=== PATIENT | female | born 2000 | race American Indian/Alaskan Native ===

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

== ENCOUNTER 2019-05-15 19:16 | Emergency (ER) | payer SELFPAY ==
--- NOTE | 2019-05-15 19:28 | Event Note ---
ED Screening Note ED Screening Note: foreign body sensation in the right eye no contact lens use c/o blurred vision in the right eye was having watery drainage which has stopped This initial assessment/diagnostic orders/clinical plan/treatment(s) is/are subject to change based on patients health status, clinical progression and re-assessment by fellow clinical providers in the ED. Further treatment and workup at subsequent clinical providers discretion. Patient/guardian urged not to elope from the ED as their condition may be serious if not clinically assessed and managed. Initial orders include: visual acuity, chance lamp
--- NOTE | 2019-05-15 22:19 | Emergency Department Report ---
ED General Adult HPI - General Chief complaint: Eye Problems Stated complaint: JAW PAIN Time Seen by Provider: 05/15/19 19:26 Source: patient Mode of arrival: Ambulatory Limitations: No Limitations - History of Present Illness Initial comments: 18-year-old female presents to ED with report of right facial weakness and numbness 2 days. Patient states she was taking a selfie picture and noticed that she had a facial droop, and that her right eye looked funny. Patient is reporting right facial numbness, right side of the tongue is numb, and states s he is unable to completely close her right eye. Patient reports altered taste, ringing in the right ear, and hyperacusis in right ear. Patient denies any slurred speech, headache, extremity numbness or weakness. -: days(s) (2) Location: face Consistency: constant Improves with: none Worsens with: none Associated Symptoms: denies: fever/chills, headaches Treatments Prior to Arrival: none - Related Data Previous Rx's Medication Instructions Recorded Last Taken Type Dicyclomine [Bentyl] 10 mg PO BID #30 capsule 12/03/18 Unknown Rx Famotidine [Pepcid] 20 mg PO BID #30 tablet 12/03/18 Unknown Rx Ondansetron [Zofran ODT TAB] 8 mg PO Q12HR #20 tab.rapdis 12/03/18 Unknown Rx predniSONE [Deltasone] 50 mg PO QDAY #5 tab 05/15/19 Unknown Rx valACYclovir [Valtrex] 500 mg PO BID 5 Days #10 tab 05/15/19 Unknown Rx Allergies Allergy/AdvReac Type Severity Reaction Status Date / Time No Known Allergies Allergy Unverified 12/03/18 12:33 ED Review of Systems ROS: Stated complaint: JAW PAIN Other details as noted in HPI Comment: All other systems reviewed and negative Constitutional: denies: chills, fever Eyes: other (reports foreign body sensation in right eye) ENT: other (reports hyperacusis and alteration in taste) Neurological: numbness, paresthesias. denies: headache, vertigo ED Past Medical Hx - Past Medical History Previous Medical History?: No - Surgical History Past Surgical History?: No - Social History Smoking Status: Never Smoker Substance Use Type: None - Medications Home Medications: Home Medications Medication Instructions Recorded Confirmed Last Taken Type Dicyclomine [Bentyl] 10 mg PO BID #30 capsule 12/03/18 Unknown Rx Famotidine [Pepcid] 20 mg PO BID #30 tablet 12/03/18 Unknown Rx Ondansetron [Zofran ODT TAB] 8 mg PO Q12HR #20 tab.rapdis 12/03/18 Unknown Rx predniSONE [Deltasone] 50 mg PO QDAY #5 tab 05/15/19 Unknown Rx valACYclovir [Valtrex] 500 mg PO BID 5 Days #10 tab 05/15/19 Unknown Rx ED Physical Exam - General Limitations: No Limitations General appearance: alert, in no apparent distress - Head Head exam: Present: atraumatic, normocephalic - Eye Eye exam: Present: normal appearance, PERRL, EOMI. Absent: conjunctival injection - ENT ENT exam: Present: mucous membranes moist - Neck Neck exam: Present: normal inspection - Respiratory Respiratory exam: Present: normal lung sounds bilaterally. Absent: respiratory distress - Cardiovascular Cardiovascular Exam: Present: regular rate, normal rhythm - GI/Abdominal GI/Abdominal exam: Present: soft. Absent: distended, tenderness - Extremities Exam Extremities exam: Present: normal inspection - Neurological Exam Neurological exam: Present: alert, oriented X3. Absent: CN II-XII intact (slight right facial droop; unable to completely close left eye; weakness of right side of forehead with eyebrow lifting; speech is clear; strength 5/5 and sensation intact in all 4 extremities) - Psychiatric Psychiatric exam: Present: normal affect, normal mood - Skin Skin exam: Present: warm, dry, intact, normal color ED Course Vital Signs 05/15/19 05/15/19 19:26 22:30 Temperature 98.4 F Pulse Rate 73 71 Respiratory 18 18 Rate Blood Pressure 150/85 Blood Pressure 140/80 [Right] O2 Sat by Pulse 100 97 Oximetry ED Medical Decision Making - Differential Diagnosis Zhu's Palsy Critical care attestation.: If time is entered above; I have spent that time in minutes in the direct care of this critically ill patient, excluding procedure time. ED Disposition Clinical Impression: Zhu's palsy Disposition: DC-01 TO HOME OR SELFCARE Is pt being admited?: No Condition: Stable Instructions: Zhu Palsy (ED) Prescriptions: predniSONE [Deltasone] 50 mg PO QDAY #5 tab valACYclovir [Valtrex] 500 mg PO BID 5 Days #10 tab Referrals: PRIMARY CARE,MD [Primary Care Provider] - 3-5 Days SIA VALDIVIA MD [Referring] - 3-5 Days [facility] [Provider Group] - 3-5 Days Time of Disposition: 22:27
[2019-05-15 23:10] VITALS: BP 140/80
== END 2019-05-15 22:45 | disposition home or self-care (01) ==
LOC: ED 19:16
DX: G51.0 Bell's palsy (principal)
CPT/HCPCS: 99282

== ENCOUNTER 2019-07-13 17:16 | Emergency (ER) | payer SELFPAY ==
--- NOTE | 2019-07-13 18:26 | Emergency Department Report ---
Blank Doc - Documentation Documentation: 18-year-old female that presents with URI symptoms and left sided breast lump. This initial assessment/diagnostic orders/clinical plan/treatment(s) is/are subject to change based on patient's health status, clinical progression and re- assessment by fellow clinical providers in the ED. Further treatment and workup at subsequent clinical providers discretion. Patient/guardians urged not to elope from the ED as their condition may be serious if not clinically assessed and managed. Initial orders include: 1- Patient sent to [facility] for further evaluation and treatment 2- CXR
[2019-07-13 19:26] LABS: HCG Qualitative,Urine Negative (Negative)
[2019-07-13 19:39] LABS: Bacteria,Urine 1+ /HPF (Negative); Bilirubin,Urine NEG (Negative); Blood,Urine NEG (Negative); Color,Urine Yellow (Yellow); Mucus,Urine 2+ /HPF; Urobilinogen,Urine < 2.0 mg/dL (<2.0)
--- NOTE | 2019-07-13 20:46 | XRay Report ---
CHEST 2 VIEWS INDICATION / CLINICAL INFORMATION: cough. COMPARISON: None available. FINDINGS: SUPPORT DEVICES: None. HEART / MEDIASTINUM: No significant abnormality. LUNGS / PLEURA: No significant pulmonary or pleural abnormality. No pneumothorax. ADDITIONAL FINDINGS: No significant additional findings. IMPRESSION: 1. No acute findings. Signer Name: Bridger Sotelo MD Signed: 07/13/2019 8:41 PM Workstation Name: [id number]
--- NOTE | 2019-07-13 23:24 | Emergency Department Report ---
- General Chief Complaint: Upper Respiratory Infection Stated Complaint: BODY PAIN/RT BREAST PAIN Time Seen by Provider: 07/13/19 18:25 Source: patient Mode of arrival: Ambulatory Limitations: No Limitations - History of Present Illness Initial Comments: Patient is 18 years old female with no significant past medical history. Patient presented to the ER complaining of cough, productive with greenish sputum for the last 5 days. Patient denied any chest pain or shortness of breath nor no fever or chills. Patient is also complaining of right breast lump on and off for the last few weeks. Patient denies any recent weight loss or anoxia. No family history of breast cancer. MD Complaint: cough - Related Data Previous Rx's Medication Instructions Recorded Last Taken Type Dicyclomine [Bentyl] 10 mg PO BID #30 capsule 12/03/18 Unknown Rx Famotidine [Pepcid] 20 mg PO BID #30 tablet 12/03/18 Unknown Rx Ondansetron [Zofran ODT TAB] 8 mg PO Q12HR #20 tab.rapdis 12/03/18 Unknown Rx predniSONE [Deltasone] 50 mg PO QDAY #5 tab 05/15/19 Unknown Rx valACYclovir [Valtrex] 500 mg PO BID 5 Days #10 tab 05/15/19 Unknown Rx Allergies Allergy/AdvReac Type Severity Reaction Status Date / Time No Known Allergies Allergy Unverified 12/03/18 12:33 ED Review of Systems ROS: Stated complaint: BODY PAIN/RT BREAST PAIN Other details as noted in HPI Comment: All other systems reviewed and negative Constitutional: denies: chills, fever Respiratory: cough. denies: shortness of breath, SOB with exertion, SOB at rest, wheezing Cardiovascular: denies: chest pain, palpitations Gastrointestinal: denies: abdominal pain, nausea, vomiting Neurological: denies: headache, weakness, numbness, paresthesias, confusion, abnormal gait ED Past Medical Hx - Past Medical History Previous Medical History?: No - Surgical History Past Surgical History?: No - Social History Smoking Status: Never Smoker Substance Use Type: Marijuana - Medications Home Medications: Home Medications Medication Instructions Recorded Confirmed Last Taken Type Dicyclomine [Bentyl] 10 mg PO BID #30 capsule 12/03/18 Unknown Rx Famotidine [Pepcid] 20 mg PO BID #30 tablet 12/03/18 Unknown Rx Ondansetron [Zofran ODT TAB] 8 mg PO Q12HR #20 tab.rapdis 12/03/18 Unknown Rx predniSONE [Deltasone] 50 mg PO QDAY #5 tab 05/15/19 Unknown Rx valACYclovir [Valtrex] 500 mg PO BID 5 Days #10 tab 05/15/19 Unknown Rx ED Physical Exam - General Limitations: No Limitations General appearance: alert, in no apparent distress - Head Head exam: Present: atraumatic, normocephalic, normal inspection - Eye Eye exam: Present: normal appearance - ENT ENT exam: Present: normal exam, normal orophraynx, mucous membranes moist - Neck Neck exam: Present: normal inspection, full ROM. Absent: tenderness, meningismus, lymphadenopathy, thyromegaly - Respiratory Respiratory exam: Present: normal lung sounds bilaterally - Cardiovascular Cardiovascular Exam: Present: regular rate, normal rhythm, normal heart sounds - GI/Abdominal GI/Abdominal exam: Present: soft, normal bowel sounds. Absent: distended, tenderness, guarding, rebound, rigid - Back Exam Back exam: Present: normal inspection, full ROM - Neurological Exam Neurological exam: Present: alert, oriented X3, CN II-XII intact - Skin Skin exam: Present: other (breast exam showed no evidence of lump.) ED Course Vital Signs 07/13/19 18:26 Temperature 98.3 F Pulse Rate 70 Respiratory 20 Rate Blood Pressure 149/89 O2 Sat by Pulse 99 Oximetry ED Medical Decision Making - Radiology Data Radiology results: report reviewed - Medical Decision Making Patient is 18 years old female with no significant past medical history. Patient presented to the ER complaining of cough, productive with greenish sputum for the last 5 days. Patient denied any chest pain or shortness of breath nor no fever or chills. Patient is also complaining of right breast lump on and off for the last few weeks. Patient denies any recent weight loss or anoxia. No family history of breast cancer. Bilateral breast exam showed no evidence of lump however patient advised to follow-up with primary care physician for a mammogram and further workup. Chest x-ray is unremarkable. Patient's symptoms consistent with acute bronchitis. Patient given a prescription for amoxicillin and Robitussin and advised to follow-up with her primary care physician in the next 2-3 days and to return to the ER if symptoms are not improved. Critical care attestation.: If time is entered above; I have spent that time in minutes in the direct care of this critically ill patient, excluding procedure time. ED Disposition Clinical Impression: Acute bronchitis, Breast lump in female Disposition: TO HOME OR SELFCARE Is pt being admited?: No Condition: Stable Instructions: Acute Bronchitis (ED), Mammogram (ED), Breast Mass (ED) Referrals: [facility] [Provider Group] - 3-5 Days Forms: Work/School Release Form(ED)
[2019-07-13 23:55] VITALS: BP 154/78
== END 2019-07-13 23:53 | disposition home or self-care (01) ==
LOC: ED 17:16
DX: J20.9 Acute bronchitis, unspecified (principal); N63.10 Unspecified lump in the right breast, unspecified quadrant; F12.10 Cannabis abuse, uncomplicated; Z79.899 Other long term (current) drug therapy
CPT/HCPCS: 71046; 81001; 81025